=== PATIENT | male | born 1970 | race Caucasian/White ===

== ENCOUNTER 2018-09-10 07:18 | Day surgery (SDC) | payer OTHER ==
[2018-09-10] VITALS (533 sets, daily range): BP systolic 97–123; BP diastolic 55–83; PULSE 65–84; TEMP 97.7–98.1; O2SAT 91–100
[~2018-09-10] VITALS: Ht 175.3 cm; Wt 83.3 kg
[2018-09-10] MEDS ORDERED: ZOCOR 20MG20 MG PO (07:42)
[2018-09-10] MEDS ORDERED: PRINZIDE 12.5 M1 TAB PO (07:42)
[2018-09-10] MEDS ORDERED: ASPIRIN E.C. 8181 MG PO (07:42)
[2018-09-10] MEDS ORDERED: NITROSTAT0.4 MG/TAB SL (07:43)
[2018-09-10 08:00] LABS: HEMATOCRIT 46.3 % (42.0-52.0); HEMOGLOBIN 16.7 g/dl (13.5-18.0); MEAN CELL VOLUME 87 fl (80.0-100.0); MEAN CORPUSCULAR HEMOGLOBIN 31 pg (27.0-31.0); MEAN CORPUSCULAR HGB CONC 36 g/dl (33.0-37.0); MEAN PLATELET VOLUME 8.7 fl (7.4-10.4); PLATELET COUNT 285 K/mm3 (130-400); RED BLOOD COUNT 5.35 M/mm3 (4.20-5.60); REDCELL DISTRIBUTION WIDTH-CV 12.1 % (11.5-14.5)
[2018-09-10 08:14] LABS: CALCIUM 9.1 mg/dL (8.4-10.2); CREATININE, serum 0.86 mg/dL (0.66-1.25); POTASSIUM 4.3 mmol/L (3.4-5.0)
[2018-09-10 08:15] LABS: INR 0.9 (0.8-3.0); PROTHROMBIN TIME 10.5 SECONDS (9.7-12.8)
--- NOTE | 2018-09-10 09:33 | NUR ---
ALL MEDICATIONS GIVEN WITH VERBAL ORDER AND READBACK WITH MD. SEE MERGE FOR ALL MEDICATION ADMIN TIMES. SEE MERGE FOR ALL RASS ASSESSMENTS DURING AND POST PROCEDURE. POSITIVE BARBEAU'S TEST IN THE RIGHT WRIST. NITRO APPLIED.
--- NOTE | 2018-09-10 11:45 | NUR ---
Patient arrives to ICU room 5. He is awake and alert. VS WNL. Angiomax infusing at prescribed rate. 1/2 NS also infusing at 100 cc/hr. TR band in place on right radial site. No s/s bleeding or hematoma. Good pulses felt on that right wrist distal to the site. Patient given call light and educated on how to use it. He is assisted in ordering lunch. Will continue to monitor.
--- NOTE | 2018-09-10 13:54 | NUR ---
SPOKE TO VINI RN WITH DR. POTTER FOR ORDERS FOR PAIN MEDICATION FOR PATIENT'S SORE WRIST. I ALSO ASK FOR CLARIFICATION REGARDING EXACTLY WHEN TO RELEASE THE TR BAND. SHE CHECKS WITH DR. POTTER AND HE GIVES ORDER TO WAIT UNTIL 2 HOURS AFTER ANGIOMAX IS FINISHED (WHICH WAS AT 1330) TO START RELEASING TR BAND.
--- NOTE | 2018-09-10 15:30 | NUR ---
ATTEMPTED TO REMOVE 5 MLS AIR FROM TR BAND AT THIS TIME, PER ORDERS. PATIENT IMMEDIATELY HAD BLOOD COMING FROM RADIAL PUNCTURE SITE. 5 MLS AIR REINSERTED INTO TR BAND. BLEEDING STOPS. PATIENT INFORMED THAT WE WILL NEED TO WAIT LONGER BEFORE TRYING TO REMOVE AIR FROM TR BAND AGAIN. HE VERBALIZES UNDERSTANDING.
--- NOTE | 2018-09-10 19:00 | NUR ---
TR BAND REMOVED AND BANDAID APPLIED TO RIGHT RADIAL SITE. NO S/S HEMATOMA OR BLEEDING.
--- NOTE | 2018-09-10 19:48 | NUR ---
REPORT GIVEN TO ROSSY RIVAS. PLAN OF CARE DISCUSSED. CARE TURNED OVER AT THIS TIME.
[2018-09-11] VITALS (383 sets, daily range): BP systolic 101–104; BP diastolic 52–71; PULSE 69–72; TEMP 98–98.4; O2SAT 91–98
[2018-09-11 05:54] LABS: HEMATOCRIT 43.9 % (42.0-52.0); HEMOGLOBIN 15.9 g/dl (13.5-18.0); MEAN CELL VOLUME 85 fl (80.0-100.0); MEAN CORPUSCULAR HEMOGLOBIN 31 pg (27.0-31.0); MEAN CORPUSCULAR HGB CONC 36 g/dl (33.0-37.0); MEAN PLATELET VOLUME 8.6 fl (7.4-10.4); PLATELET COUNT 275 K/mm3 (130-400); RED BLOOD COUNT 5.14 M/mm3 (4.20-5.60); REDCELL DISTRIBUTION WIDTH-CV 11.8 % (11.5-14.5)
[2018-09-11 06:13] LABS: CALCIUM 8.6 mg/dL (8.4-10.2); CREATININE, serum 0.84 mg/dL (0.66-1.25); POTASSIUM 4.1 mmol/L (3.4-5.0)
--- NOTE | 2018-09-11 07:30 | NUR ---
Report received from Latrice BLAIR and care resumed. Pt resting in chair at this time. Denies any needs or concerns. Will continue to follow.
--- NOTE | 2018-09-11 10:25 | NUR ---
Dr Powers in to see pt at this time.
[2018-09-11] MEDS ORDERED: EFFIENT10 MG PO (11:38)
--- NOTE | 2018-09-11 12:07 | NUR ---
Discharge orders received. Pt IV dc'd and is currently getting dressed.
--- NOTE | 2018-09-11 12:21 | NUR ---
Pt walked out for discharge by request at this time to front entrance with belongings and discharge paperwork. Script for effient was called in to [facility] as pt's normal pharmacy is closed at this time.
--- NOTE | 2018-09-11 14:37 | NUR ---
SW unable to meet with patient before discharge.
== END 2018-09-11 12:20 | disposition home or self-care (01) ==
LOC: COL.CAR 07:18 → ICU 11:46 → COL.CAR 09-11 12:20
PROVIDERS: Internal Medicine Cardiovascular Disease
DX: T82.867A Thrombosis due to cardiac prosthetic devices, implants and grafts, initial encounter (principal); I25.110 Atherosclerotic heart disease of native coronary artery with unstable angina pectoris; Z91.14 Patient's other noncompliance with medication regimen; E78.2 Mixed hyperlipidemia; F17.210 Nicotine dependence, cigarettes, uncomplicated; I25.2 Old myocardial infarction; I10 Essential (primary) hypertension; F43.10 Post-traumatic stress disorder, unspecified; Z95.5 Presence of coronary angioplasty implant and graft; Z79.899 Other long term (current) drug therapy; Z79.82 Long term (current) use of aspirin
CPT/HCPCS: OP; C1725; C1757; C1769; C1874; C1887; C9600; J0583; J1644; J2250; J3010; Q9967

== ENCOUNTER 2019-04-16 18:54 | Inpatient (IN) | payer OTHER ==
[~2019-04-16] VITALS: Ht 175.3 cm; Wt 85.0 kg
[~2019-04-16 18:54] MED LIST: ASPIRIN E.C. 8181 MG PO; EFFIENT10 MG PO; NITROSTAT0.4 MG/TAB SL; PRINZIDE 12.5 M1 TAB PO; ZOCOR 20MG20 MG PO
[2019-04-16 19:45] VITALS: BP 159/88; PULSE 68; TEMP 98.3
[2019-04-16] MEDS ORDERED: ZOCOR 40MG40 MG PO (20:00)
--- NOTE | 2019-04-16 20:00 | NUR ---
PT ADMITTED VIA TRANSFER FROM [facility]. PT DENIES CHEST PAIN BUT STATES HIS PAIN IS SHARP, ALONG HIS RIGHT FLANK.
[2019-04-16 20:38] LABS: INR 1.1 (0.8-3.0); PROTHROMBIN TIME 12.8 SECONDS (9.7-12.8)
[2019-04-16 20:41] LABS: PARTIAL THROMBOPLASTIN TIME 30.6 SECONDS (26.0-37.0)
--- NOTE | 2019-04-16 22:00 | NUR ---
HEP Xa DRAWN. SUB Q BOLUS ADMIN. AND HEPARIN gtt STARTING AT 15.3 mL/HR.
[2019-04-16 22:04] VITALS: BP 159/88; PULSE 68; TEMP 98.3
[2019-04-17] VITALS (7 sets, daily range): BP systolic 125–147; BP diastolic 77–98; PULSE 73–92; TEMP 98–99.2
[2019-04-17 03:59] LABS: PH 7 (5-8); SQUAMOUS EPITHELIAL None Seen /hpf; URINE APPEARANCE Clear; URINE BACTERIA None Seen /hpf; URINE BILIRUBIN Negative (NEGATIVE); URINE BLOOD Negative (NEGATIVE); URINE COLOR Yellow; URINE GLUCOSE Negative (NEGATIVE); URINE KETONE 1+ (NEGATIVE); URINE LEUKOCYTE ESTERASE Negative (NEGATIVE); URINE NITRATE Negative (NEGATIVE); URINE PROTEIN(semi-quant) 1+ (NEGATIVE); URINE RBC 0-2 /hpf; URINE UROBILINOGEN >=4.0 mg/dL (NEGATIVE)
[2019-04-17 04:02] LABS: COLLECTION METHOD CLEAN CATCH
[2019-04-17 04:47] LABS: BASO % 0.5 % (0.0-2.0); EOS # 0.4 (0.0-0.7); EOS % 4.6 % (0-4.0); GRAN # 5.7 (1.4-6.5); GRAN % 66.4 % (42.2-75.2); HEMATOCRIT 41.4 % (42.0-52.0); HEMOGLOBIN 14.7 g/dl (13.5-18.0); LYMPH # 1.9 (1.2-3.4); LYMPH % 22.4 % (20.0-51.0); MEAN CELL VOLUME 88 fl (80.0-100.0); MEAN CORPUSCULAR HEMOGLOBIN 31 pg (27.0-31.0); MEAN CORPUSCULAR HGB CONC 36 g/dl (33.0-37.0); MEAN PLATELET VOLUME 8.4 fl (7.4-10.4); MONO # 0.5 (0.1-0.6); MONO % 5.6 % (1.7-9.3); PLATELET COUNT 217 K/mm3 (130-400); RED BLOOD COUNT 4.71 M/mm3 (4.20-5.60); REDCELL DISTRIBUTION WIDTH-CV 12.1 % (11.5-14.5)
[2019-04-17 05:02] LABS: ALBUMIN 3.4 gm/dL (3.5-5.0); BILIRUBIN,TOTAL 1.1 mg/dL (0.0-1.0); CALCIUM 8.1 mg/dL (8.4-10.2); CREATININE, serum 0.86 (0.66-1.25); POTASSIUM 3.9 mmol/L (3.4-5.0); TOTAL PROTEIN 6.7 gm/dL (6.4-8.2)
--- NOTE | 2019-04-17 05:58 | NUR ---
NO CHANGE IN HEPARIN gtt RATE. HEP Xa LEVEL INCREASED FROM 0.01 TO 0.44. PT HAS HAD NO c/o RIGHT FLANK PAIN.
--- NOTE | 2019-04-17 10:55 | NUR ---
Patient lives at home with his (Miranda Carnes [phone]) in [place], [place] and their five children and plans to return home upon recovery. 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 Patient has no durable medical equipment usage or anticipated needs, his primary care physician is Mony Fuller and also receives care from [facility]/Quality Assurance Director Syed Horne as well as [facility]. Patient's pharmacy is through [facility], and he does not have advance directive for healthcare completed or on file at this time. No further needs and high school social studies tutor will follow as needed.
--- NOTE | 2019-04-17 23:30 | NUR ---
Pt resting in room with heparin gtt @ 15.3. Patient has had 2 normal hepxa so will redraw in am. Patient does c/o pain on right side of abdomen and is tender to touch. Pt alert and oriented and VSS. Has no other concerns at this time. call light within reach, will continue to monitor
--- NOTE | 2019-04-18 03:57 | NUR ---
Pt doing well. VSS. Still c/o dull pain in abdomen towards left side, states it is tolerable. No other concerns at this time. Will continue to monitor
[2019-04-18 04:00] VITALS: BP 137/96; PULSE 72; TEMP 98.8
[2019-04-18 06:34] LABS: HEMOGLOBIN 14.2 g/dl (13.5-18.0); MEAN CELL VOLUME 88 fl (80.0-100.0); MEAN CORPUSCULAR HEMOGLOBIN 31 pg (27.0-31.0); MEAN CORPUSCULAR HGB CONC 36 g/dl (33.0-37.0); MEAN PLATELET VOLUME 8.6 fl (7.4-10.4); PLATELET COUNT 253 K/mm3 (130-400); RED BLOOD COUNT 4.53 M/mm3 (4.20-5.60)
--- NOTE | 2019-04-18 06:40 | NUR ---
awake resting in bed, bedside shift report received from ROSSY Chung
[2019-04-18 07:02] VITALS: BP 140/89; PULSE 68; TEMP 98.7
--- NOTE | 2019-04-18 07:34 | NUR ---
appears to be sleeping, in bed with lights off, eyes closed, resp quiet and easy
--- NOTE | 2019-04-18 08:30 | NUR ---
awake resting in bed, explained he cannot eat before ultrasound and verbalizes understanding, full assessment completed, see interventions for further info
--- NOTE | 2019-04-18 09:50 | NUR ---
awake resting in bed, denies needs, family at bedside
--- NOTE | 2019-04-18 10:24 | NUR ---
Initial visit; Patient thanked Pressure Supervisor for looking in on him and offering God's blessings.
[2019-04-18 11:12] VITALS: BP 127/90; PULSE 61; TEMP 98.3
--- NOTE | 2019-04-18 14:30 | NUR ---
resting in bed, denies needs
[2019-04-18 15:50] VITALS: BP 122/82; PULSE 70; TEMP 98.2
--- NOTE | 2019-04-18 16:00 | NUR ---
Dr Allen in to see patient
--- NOTE | 2019-04-18 16:50 | NUR ---
resting in bed, and denies needs, at bedside
--- NOTE | 2019-04-18 18:00 | NUR ---
resting in bed, denies needs
--- NOTE | 2019-04-18 19:10 | NUR ---
bedside shift report given to ROSSY Sanabria
[2019-04-18 20:10] VITALS: BP 144/85; PULSE 70; TEMP 98.9
--- NOTE | 2019-04-18 20:45 | NUR ---
Shift assessment complete. Pt resting in bed, awake, a&o, cooperative c cares. Pt denies pain, nausea or other c/o at this time. INT x2 patent; heparin gtt infusing per orders. Pt denies needs. Call light in reach, will continue to monitor.
[2019-04-18 23:43] VITALS: BP 130/84; PULSE 71; TEMP 98.6
[2019-04-19 04:00] VITALS: BP 131/85; PULSE 70; TEMP 98.5
--- NOTE | 2019-04-19 06:55 | NUR ---
bedside shift report received from ROSSY La
[2019-04-19 07:02] LABS: BASO % 0.3 % (0.0-2.0); EOS # 0.3 (0.0-0.7); EOS % 3.9 % (0-4.0); GRAN % 58.6 % (42.2-75.2); HEMATOCRIT 38.6 % (42.0-52.0); HEMOGLOBIN 13.9 g/dl (13.5-18.0); LYMPH # 2.1 (1.2-3.4); MEAN CELL VOLUME 88 fl (80.0-100.0); MEAN CORPUSCULAR HEMOGLOBIN 32 pg (27.0-31.0); MEAN CORPUSCULAR HGB CONC 36 g/dl (33.0-37.0); MEAN PLATELET VOLUME 8.4 fl (7.4-10.4); MONO # 0.5 (0.1-0.6); MONO % 6.6 % (1.7-9.3); PLATELET COUNT 261 K/mm3 (130-400); RED BLOOD COUNT 4.37 M/mm3 (4.20-5.60); REDCELL DISTRIBUTION WIDTH-CV 12.2 % (11.5-14.5)
[2019-04-19 07:17] LABS: ALBUMIN 3.4 gm/dL (3.5-5.0); BILIRUBIN,TOTAL 0.3 mg/dL (0.0-1.0); CALCIUM 8.4 mg/dL (8.4-10.2); CREATININE, serum 0.88 (0.66-1.25); POTASSIUM 3.9 mmol/L (3.4-5.0); TOTAL PROTEIN 6.7 gm/dL (6.4-8.2)
[2019-04-19 07:27] VITALS: BP 151/97; PULSE 65; TEMP 98.4
--- NOTE | 2019-04-19 08:28 | NUR ---
had breakfast and tolerated well, full assessment completed, see interventions for further info
[2019-04-19] MEDS ORDERED: LOVENOX120 MG/0.8 SQ (09:53)
[2019-04-19] MEDS ORDERED: AMOXICILLIN 8751 TAB PO (09:55)
--- NOTE | 2019-04-19 09:57 | NUR ---
Dr Christianson and care team in to see patient, will plan discharge later
--- NOTE | 2019-04-19 10:00 | NUR ---
IV fluids stopped, instructed patietn on administering lovenox and then completed this independently
--- NOTE | 2019-04-19 12:15 | NUR ---
had lunch and tolerated well, telemetry and IV sites discontinued, up to take a shower before discharge
[2019-04-19 12:17] VITALS: BP 147/96; PULSE 74; TEMP 98.6
--- NOTE | 2019-04-19 12:53 | NUR ---
discharge instructions given to patient and his , verbalizes understanding
--- NOTE | 2019-04-19 12:58 | NUR ---
discharged ambulatory
== END 2019-04-19 12:58 | disposition home or self-care (01) | DRG 445 ==
LOC: SURG 18:54
PROVIDERS: Nurse Practitioner Family; Physician Assistant; ADMIT Family Medicine
DX: K80.00 Calculus of gallbladder with acute cholecystitis without obstruction (principal); J90 Pleural effusion, not elsewhere classified; I25.10 Atherosclerotic heart disease of native coronary artery without angina pectoris; I10 Essential (primary) hypertension; E78.5 Hyperlipidemia, unspecified; Z95.5 Presence of coronary angioplasty implant and graft; Z91.14 Patient's other noncompliance with medication regimen; Z90.49 Acquired absence of other specified parts of digestive tract; Z79.82 Long term (current) use of aspirin; Z79.02 Long term (current) use of antithrombotics/antiplatelets; Z87.891 Personal history of nicotine dependence
CPT/HCPCS: OP; 99223-AI; 99232-AI; 99239; J1644; J2543; J7030

== ENCOUNTER 2019-04-26 11:20 | Day surgery (SDC) | payer OTHER ==
[2019-04-26] VITALS (10 sets, daily range): BP systolic 112–142; BP diastolic 72–91; PULSE 67–95; TEMP 97.9–98.1
[~2019-04-26] VITALS: Ht 175.3 cm; Wt 83.1 kg
[~2019-04-26 11:20] MED LIST changes: +AMOXICILLIN 8751 TAB PO; +LOVENOX120 MG/0.8 SQ; +ZOCOR 40MG40 MG PO
[2019-04-26 12:02] LABS: BASO % 0.5 % (0.0-2.0); EOS # 0.3 (0.0-0.7); EOS % 4.2 % (0-4.0); GRAN # 4.2 (1.4-6.5); GRAN % 56.2 % (42.2-75.2); HEMATOCRIT 45.7 % (42.0-52.0); HEMOGLOBIN 15.9 g/dl (13.5-18.0); LYMPH # 2.5 (1.2-3.4); LYMPH % 33.4 % (20.0-51.0); MEAN CELL VOLUME 90 fl (80.0-100.0); MEAN CORPUSCULAR HEMOGLOBIN 31 pg (27.0-31.0); MEAN CORPUSCULAR HGB CONC 35 g/dl (33.0-37.0); MEAN PLATELET VOLUME 8.1 fl (7.4-10.4); MONO # 0.4 (0.1-0.6); PLATELET COUNT 435 K/mm3 (130-400); RED BLOOD COUNT 5.07 M/mm3 (4.20-5.60); REDCELL DISTRIBUTION WIDTH-CV 11.9 % (11.5-14.5)
[2019-04-26 12:09] LABS: ALBUMIN 4.5 gm/dL (3.5-5.0); BILIRUBIN,TOTAL 0.4 mg/dL (0.0-1.0); CALCIUM 9.2 mg/dL (8.4-10.2); CREATININE, serum 0.95 (0.66-1.25); POTASSIUM 4.8 mmol/L (3.4-5.0); TOTAL PROTEIN 8.4 gm/dL (6.4-8.2)
--- NOTE | 2019-04-26 12:12 | NUR ---
TO RM AT 1131- CALL LIGHT IN REACH AT BEDSIDE.
--- NOTE | 2019-04-26 13:45 | NUR ---
DR MESSER INTO TALK WITH PATIENT AND HIS .
--- NOTE | 2019-04-26 20:30 | NUR ---
Pt. sitting up in bed at this time. Pt. is A&OX3, assessment complete. IV to lt. forearm patent, IV fluids infusing per orders. Abd. lap sites x4 CDI with bandaids. Pt. denies pain or other needs, call light within reach.
[2019-04-27 04:49] VITALS: BP 117/68; PULSE 70; TEMP 98.2
--- NOTE | 2019-04-27 07:03 | NUR ---
Received report from order builder loader nurseChadwick.
[2019-04-27 07:09] LABS: HEMATOCRIT 42.3 % (42.0-52.0); HEMOGLOBIN 14.8 g/dl (13.5-18.0); MEAN CELL VOLUME 88 fl (80.0-100.0); MEAN CORPUSCULAR HEMOGLOBIN 31 pg (27.0-31.0); MEAN CORPUSCULAR HGB CONC 35 g/dl (33.0-37.0); MEAN PLATELET VOLUME 8.6 fl (7.4-10.4); PLATELET COUNT 468 K/mm3 (130-400); RED BLOOD COUNT 4.79 M/mm3 (4.20-5.60); REDCELL DISTRIBUTION WIDTH-CV 11.6 % (11.5-14.5)
--- NOTE | 2019-04-27 08:07 | NUR ---
Call light within reach, bed in low position. Wanting pain meds when next available reporting pain is constant dull to abd that he is unable to sleep. Up in room independent. INT site to L wrist clear of redness/swelling/pain Patient agreed to wear SCD on while in bed. ASking about his other meds he needs to take and that he could have his bring in his meds from home. Informed patient hospital policy encourages patient to have meds dispensed from inpatient pharmacy during his hospital stay, patient agrees at this time.
[2019-04-27 08:17] LABS: BAND 9 % (0-10); LYMPHOCYTE 8 % (20.0-51.0); NEUTROPHILS 81 % (42.0-75.2); PLATELET ESTIMATE NORMAL (NORMAL)
[2019-04-27 08:23] VITALS: BP 129/85; PULSE 83; TEMP 97.8
--- NOTE | 2019-04-27 09:31 | NUR ---
Patient resting in bed with no needs reported. Assured patient pain meds will be given when next available.
--- NOTE | 2019-04-27 09:58 | NUR ---
FAMILY PRESENT ( AND BABY DAUGHTER) IN ROOM, PATIENT ASKING WHEN HE CAN BE DISMISSED. SEE EMAR FOR PAIN MED GIVEN. UP IN ROOM WITH STEADY GAIT. CALL LIGHT WITHIN REACH, BED IN LOW POSITION. WAITING FOR DOCTOR ROUNDS.
--- NOTE | 2019-04-27 11:22 | NUR ---
Reports pain is unchanged as dull constant pain but is more tolerable. Denies any other needs currently.
[2019-04-27 11:23] VITALS: BP 125/77; PULSE 85; TEMP 98.1
--- NOTE | 2019-04-27 12:44 | NUR ---
Patient status unchanged, denies additional questions or concerns currently. Verbalizes waiting for doctor to round.
[2019-04-27] MEDS ORDERED: NORCO 325 MG-51 TAB PO (13:43)
--- NOTE | 2019-04-27 14:52 | NUR ---
Discharge instructions for post op juan miguel brown reviewed with patient, including follow up post op appointments and rx for hydrocodone given to patient/, reviewed when to call doctor, post op activity instructions, diet, and home meds with no other questions/concerns reported. Personal belongings packed up by patient's . Patient refused wheel chair off unit. Patient discharged via auto with family at 1450.
--- NOTE | 2019-04-27 15:51 | NUR ---
Sql Database Administrator met with the patient and patient's Miranda (ph#[phone]) to discuss discharge planning. Patient lives in [place] with his and daughter. Patient sees Dr. Fuller on [facility] for primary care and obtains his medications from [facility] or the [facility] with no issue. Patient reports independence with ADLS and does not utilize DME. Patient has no concerns about returning home upon discharge.
== END 2019-04-27 14:50 | disposition home or self-care (01) ==
LOC: SURG 11:20 → SDCO 11:20 → SURG 18:44 → SDCO 04-27 14:50
PROVIDERS: Surgery
DX: K80.00 Calculus of gallbladder with acute cholecystitis without obstruction (principal); K82.A1 Gangrene of gallbladder in cholecystitis; I10 Essential (primary) hypertension; E78.5 Hyperlipidemia, unspecified; I25.10 Atherosclerotic heart disease of native coronary artery without angina pectoris; Z87.891 Personal history of nicotine dependence; Z79.899 Other long term (current) drug therapy; Z79.82 Long term (current) use of aspirin
CPT/HCPCS: OP; A4216; J0690; J1100; J1885; J2405; J2704; J3010; J7120

== ENCOUNTER 2021-09-19 00:49 | Emergency (ER) | payer OTHER ==
[~2021-09-19 00:49] MED LIST changes: +NORCO 325 MG-51 TAB PO
[2021-09-19 00:55] VITALS: TEMP 97.7
[2021-09-19 01:09] LABS: BASO % 0.4 % (0.0-2.0); EOS # 0.1 K/mm3 (0.0-0.7); EOS % 1.3 % (0.0-4.0); GRAN # 6.1 K/mm3 (1.4-6.5); GRAN % 62.2 % (42.2-75.2); HEMATOCRIT 45.9 % (42.0-52.0); HEMOGLOBIN 16.7 g/dl (13.5-18.0); LYMPH % 30.9 % (20.0-51.0); MEAN CELL VOLUME 85 fl (80.0-100.0); MEAN CORPUSCULAR HEMOGLOBIN 31 pg (27-31); MEAN CORPUSCULAR HGB CONC 36 g/dl (33.0-37.0); MEAN PLATELET VOLUME 8.2 fl (7.4-10.4); MONO # 0.5 K/mm3 (0.1-0.6); MONO % 4.9 % (1.7-9.3); PLATELET COUNT 254 K/mm3 (130-400); REDCELL DISTRIBUTION WIDTH-CV 12.3 % (11.5-14.5)
[2021-09-19 01:15] LABS: PROTHROMBIN TIME 11.4 SECONDS (9.7-12.8)
[2021-09-19 01:22] LABS: BILIRUBIN,TOTAL 0.7 mg/dL (0.2-1.2); C-REACTIVE PROTEIN 0.73 mg/dL (0.00-0.50); CALCIUM 9.6 mg/dL (8.4-10.2); CREATININE, serum 1.17 mg/dL (0.72-1.25); POTASSIUM 3.7 mmol/L (3.5-4.5); TOTAL PROTEIN 7.8 gm/dL (6.2-8.1)
[2021-09-19 01:30] LABS: TROPONIN-I 0.087 ng/mL (0.00-0.033)
[2021-09-19 01:53] VITALS: BP 147/108; PULSE 81
== END 2021-09-19 01:53 | disposition short-term general hospital (02) ==
LOC: COL.ER 00:49
PROVIDERS: Nurse Practitioner
DX: R05.9 Cough, unspecified (principal)
CPT/HCPCS: J2270; J3101

== ENCOUNTER 2021-11-20 11:42 | Outpatient (RCR) | payer OTHER ==
[~2021-11-20 11:42] MED LIST changes: +CRESTOR20 MG PO; +IMDUR 30MG30 MG/TAB PO; +PRINIVIL5 MG PO; +VITAMIN D250 MCG PO; +ZETIA 10MG TAB10 MG PO
== END 2021-11-26 | disposition home or self-care (01) ==
LOC: COL.CR
DX: Z48.812 Encounter for surgical aftercare following surgery on the circulatory system (principal); Z95.5 Presence of coronary angioplasty implant and graft

== ENCOUNTER 2021-12-04 12:06 | Outpatient (RCR) | payer OTHER | END 2021-12-26 | disposition home or self-care (01) | LOC: COL.CR | DX: Z48.812 Encounter for surgical aftercare following surgery on the circulatory system (principal); Z95.5 Presence of coronary angioplasty implant and graft ==

== ENCOUNTER 2022-01-08 14:27 | Outpatient (RCR) | payer OTHER | END 2022-01-26 | disposition home or self-care (01) | LOC: COL.CR | DX: Z48.812 Encounter for surgical aftercare following surgery on the circulatory system (principal); Z95.5 Presence of coronary angioplasty implant and graft ==

== ENCOUNTER 2022-01-27 04:00 | Outpatient (RCR) | payer OTHER | END 2022-02-26 | LOC: COL.CR | DX: Z29.8 Encounter for other specified prophylactic measures (principal) ==

== ENCOUNTER 2022-09-21 17:39 | Emergency (ER) | payer OTHER, MEDICAID ==
[~2022-09-21] VITALS: Ht 175.3 cm; Wt 86.4 kg
[2022-09-21] MEDS ORDERED: TOPROL XL 25MG25 MG (18:19)
[2022-09-21 19:42] VITALS: BP 114/80; PULSE 69; TEMP 97.5
== END 2022-09-21 19:42 | disposition home or self-care (01) ==
LOC: COL.ER 17:39
DX: B34.9 Viral infection, unspecified (principal); R05.9 Cough, unspecified; R50.9 Fever, unspecified; M79.10 Myalgia, unspecified site; R11.0 Nausea; Z28.311 Partially vaccinated for COVID-19